=== PATIENT | female | born 1985 | race Caucasian/White ===

== ENCOUNTER → 2016-05-16 | Outpatient (CLI) | payer BC ==
[2016-05-16 10:34] LABS: BASO % 0.6 % (0.0-2.0); GRAN # 3.5 (1.4-6.5); GRAN % 50.2 % (42.2-75.2); HEMATOCRIT 43.1 % (37.0-47.0); HEMOGLOBIN 14.8 g/dl (12.5-16.0); LYMPH % 43.1 % (20.0-51.0); MEAN CELL VOLUME 92 fl (80.0-100.0); MEAN CORPUSCULAR HEMOGLOBIN 31 pg (27.0-31.0); MEAN CORPUSCULAR HGB CONC 34 g/dl (33.0-37.0); MEAN PLATELET VOLUME 11.2 fl (7.4-10.4); MONO # 0.4 (0.1-0.6); PLATELET COUNT 252 K/mm3 (130-400); RED BLOOD COUNT 4.71 M/mm3 (4.10-5.30); REDCELL DISTRIBUTION WIDTH-CV 12.5 % (11.5-14.5)
== END ==
LOC: COL.LAB 09:06 → ZCOL.LAB 09:06
DX: N92.5 Other specified irregular menstruation (principal)

== ENCOUNTER 2017-02-05 15:21 | Outpatient (RCR) | payer OTHER | END 2017-04-25 | disposition home or self-care (01) | LOC: WSOH | DX: S67.197A Crushing injury of left little finger, initial encounter (principal); Z79.01 Long term (current) use of anticoagulants; Z79.82 Long term (current) use of aspirin; Z88.0 Allergy status to penicillin; Z88.8 Allergy status to other drugs, medicaments and biological substances; W23.1XXA Caught, crushed, jammed, or pinched between stationary objects, initial encounter; Y99.0 Civilian activity done for income or pay ==

== ENCOUNTER → 2017-10-03 | Outpatient (CLI) | payer BC ==
[2017-10-03 17:32] LABS: BASO # 0.1 (0.0-0.2); BASO % 0.6 % (0.0-2.0); GRAN # 6.2 (1.4-6.5); GRAN % 55.7 % (42.2-75.2); HEMATOCRIT 40.7 % (37.0-47.0); HEMOGLOBIN 13.9 g/dl (12.5-16.0); LYMPH % 36.4 % (20.0-51.0); MEAN CELL VOLUME 91 fl (80.0-100.0); MEAN CORPUSCULAR HEMOGLOBIN 31 pg (27.0-31.0); MEAN CORPUSCULAR HGB CONC 34 g/dl (33.0-37.0); MONO # 0.8 (0.1-0.6); MONO % 6.9 % (1.7-9.3); PLATELET COUNT 260 K/mm3 (130-400); RED BLOOD COUNT 4.49 M/mm3 (4.10-5.30); REDCELL DISTRIBUTION WIDTH-CV 12.8 % (11.5-14.5)
== END ==
LOC: COL.LAB 16:57
PROVIDERS: Psychiatry & Neurology Neurology
DX: G93.2 Benign intracranial hypertension (principal)

== ENCOUNTER → 2017-11-19 | Outpatient (CLI) | payer BC ==
[2017-11-19 13:13] LABS: CALCIUM 9.2 mg/dL (8.4-10.2); CREATININE, serum 0.78 mg/dL (0.52-1.25); POTASSIUM 3.1 mmol/L (3.4-5.0)
== END ==
LOC: COL.LAB 12:35
PROVIDERS: Psychiatry & Neurology Neurology
DX: G93.2 Benign intracranial hypertension (principal)

== ENCOUNTER → 2019-01-02 | Outpatient (CLI) | payer BC | LOC: BHSO 08:45 | DX: Z01.818 Encounter for other preprocedural examination (principal) ==

== ENCOUNTER 2021-07-14 11:11 | Day surgery (SDC) | payer BC ==
[~2021-07-14] VITALS: Ht 162.6 cm; Wt 63.0 kg
[2021-07-14] MEDS ORDERED: PROBIOTIC-MAJOR PO (12:10)
[2021-07-14] MEDS ORDERED: PRILOSEC 20MG20 MG PO (12:10)
[2021-07-14] MEDS ORDERED: MELATONIN5 M1 PO (12:11)
[2021-07-14] MEDS ORDERED: ROBAXIN 75750 MG/TAB PO (12:12)
[2021-07-14] MEDS ORDERED: TYLENOL 500MG500 MG PO (12:13)
[2021-07-14] MEDS ORDERED: QULIPTA30 MG PO (12:14)
[2021-07-14] MEDS ORDERED: BOTOX200 U (12:15)
[2021-07-14 12:38] VITALS: BP 109/60; PULSE 88; TEMP 97.8
[2021-07-14] MEDS ORDERED: MOTRIN 800800 MG/TAB PO (12:42)
[2021-07-14] MEDS ORDERED: PERCOCET 325 MG1 TA2 PO (12:42)
[2021-07-14 14:28] VITALS: BP 105/64; PULSE 75
--- NOTE | 2021-07-14 14:28 | NUR ---
RETURNED TO ROOM 7 ON CART WITH TIRSO SEGURA. WOUND CLEAN, DRY, AND INTACT. IV FLUIDS INFUSING; SIDE RAILS UP X 2. AT BEDSIDE
[2021-07-14 14:43] VITALS: BP 105/62; PULSE 70
--- NOTE | 2021-07-14 14:43 | NUR ---
PATIENT IS ABLE TO DRINK AND EAT. SHE RATES PAIN 5 OR 6 OUT OF 10. REQUESTS PAIN MEDICATION.
--- NOTE | 2021-07-14 15:00 | NUR ---
PATIENT RATES HER PAIN 5 OR 6 OUT OF 10. SHE TOOK 1 OXYCODONE 5 MG WITH A SIP OF PEPSI.
--- NOTE | 2021-07-14 15:03 | NUR ---
PATIENT IS READY TO USE THE RESTROOM. SHE WAS ABLE TO WALK TO THE BATHROOM WITH MINIMAL ASSIST AND WAS ABLE TO URINATE. RETURNED TO BED WITH MINIMAL ASSISTANCE.
--- NOTE | 2021-07-14 15:23 | NUR ---
PATIENT IS DRESSED AND READY FOR DISCHARGE. IV REMOVED, SHE WAS TAKEN OUTSIDE VIA WHEELCHAIR. SHE REPORTS PAIN MEDICATION HAS STARTED WORKING, PAIN IS AT A 3-4.
--- NOTE | 2021-07-14 15:28 | NUR ---
PATIENT ASSISTED INTO PERSONAL VEHICLE WITH HELP FROM HER .
[2021-07-14 15:33] VITALS: BP 111/73; PULSE 80
[2021-07-14 15:38] VITALS: TEMP 97.3
== END 2021-07-14 15:38 | disposition home or self-care (01) ==
LOC: SDCO 11:11 → EDSTATUS 13:30 → COL.RAD 13:30 → SDCO 15:38
DX: N83.201 Unspecified ovarian cyst, right side (principal); N73.6 Female pelvic peritoneal adhesions (postinfective); G89.29 Other chronic pain; Z87.42 Personal history of other diseases of the female genital tract
CPT/HCPCS: A4314; J1100; J1885; J2405; J2704; J3010; J7120

== ENCOUNTER → 2023-04-18 | Outpatient (CLI) | payer OTHER ==
[~2023-04-18] MED LIST: BOTOX200 U; MELATONIN5 M1 PO; MOTRIN 800800 MG/TAB PO; PERCOCET 325 MG1 TA2 PO; PRILOSEC 20MG20 MG PO; PROBIOTIC-MAJOR PO; QULIPTA30 MG PO; ROBAXIN 75750 MG/TAB PO; TYLENOL 500MG500 MG PO
== END ==
LOC: MHCPAIN 12:41
DX: M54.81 Occipital neuralgia (principal); M79.18 Myalgia, other site; M47.812 Spondylosis without myelopathy or radiculopathy, cervical region
CPT/HCPCS: G0463; J0665; J1040

== ENCOUNTER → 2023-05-16 | Outpatient (CLI) | payer OTHER | LOC: MHCPAIN 13:06 | DX: M54.81 Occipital neuralgia (principal); M54.2 Cervicalgia | CPT/HCPCS: G0463 ==